=== PATIENT | female | born 1995 | race American Indian/Alaskan Native ===

== ENCOUNTER 2021-04-22 08:49 | Inpatient (IN) | payer MEDICAID ==
[2021-04-22] MEDS ORDERED: fentaNYL 100 MCG/2 ML INJ IV PRN (12:30)
[2021-04-22] MEDS ORDERED: miSOPROStol 200 MCG TAB PR PRN (12:30)
[2021-04-22] MEDS ORDERED: OXYTOCIN 10 UNIT/1 ML INJ IM PRN (12:30)
[2021-04-22] MEDS ORDERED: LIDOCAINE (2%) 20 MG/1 ML VIAL 20 ML MDV INFILTRATI ONE (12:30)
[2021-04-22] MEDS ORDERED: MINERAL OIL 30 ML ORAL LIQD PO PRN (12:30)
[2021-04-22] MEDS ORDERED: BUTORPHANOL 2 MG/1 ML INJ IV PRN (12:30)
[2021-04-22] MEDS ORDERED: METHYLERGONOVINE MALEATE 0.2 MG/ML VIAL IM PRN (12:30)
[2021-04-22] MEDS ORDERED: CARBOPROST TROMETHAMINE 250 MCG/1 ML INJ IM PRN (12:30)
[2021-04-22] MEDS ORDERED: LOPERAMIDE 2 MG CAP PO PRN (12:30)
[2021-04-22] MEDS ORDERED: ePHEDrine SULFATE 50 MG/1 ML INJ IV PRN (12:30)
[2021-04-22] MEDS ORDERED: NalbUPHINE 10 MG/1 ML INJ IV PRN (12:30)
[2021-04-22] MEDS ORDERED: TERBUTALINE 1 MG/1 ML INJ SUB-Q PRN (12:30)
[2021-04-22] MEDS ORDERED: ACETAMINOPHEN 325 MG TAB PO PRN (12:30)
[2021-04-22] MEDS ORDERED: OXYTOCIN DRIP 30 UNITS/500 ML BAG IV SCH ×2 (12:30)
[2021-04-22] MEDS: LACTATED RINGERS 1,000 ML IV SCH ×2 (12:44→21:49)
[2021-04-22 13:15] LABS: Hematocrit 28.7 % (30.3-42.9); Hemoglobin 9.4 gm/dl (10.1-14.3); Mean Corpuscular HGB Conc 33 % (30-34); Mean Corpuscular Volume 78 fl (79-97); Platelet Count 145 K/mm3 (140-440); Red Blood Count 3.68 M/mm3 (3.65-5.03); Red Cell Distribution Width 16.8 % (13.2-15.2)
--- NOTE | 2021-04-22 22:50 | History and Physical Report ---
History of Present Illness Date of examination: 04/22/21 Date of admission: 04/22/21 08:49 Chief complaint: I'm here for my induction History of present illness: Pt is a 25 year old who presents today for induction of labor at 40 weeks at the recommendation of [facility] due to brain anomaly. Past History Past Medical History: no pertinent history Past Surgical History: no surgical history Family/Genetic History: none Social history: no significant social history, single - Obstetrical History Expected Date of Delivery: 04/23/21 Actual Gestation: 40 Week(s) 0 Day(s) : 4 Para: 0 Medications and Allergies Allergies Allergy/AdvReac Type Severity Reaction Status Date / Time No Known Allergies Allergy Unverified 04/22/21 11:30 Home Medications Medication Instructions Recorded Confirmed Last Taken Type One Daily Tablet 1 tab PO DAILY 04/22/21 04/22/21 04/20/21 History Active Meds: Active Medications Acetaminophen (Acetaminophen 325 Mg Tab) 650 mg PO Q4H PRN PRN Reason: Pain, Mild (1-3) Butorphanol Tartrate (Butorphanol 2 Mg/1 Ml Inj) 2 mg IV Q2H PRN PRN Reason: Pain , Severe (7-10) Carboprost Tromethamine (Carboprost Tromethamine 250 Mcg/1 Ml Inj) 250 mcg IM ONCE PRN PRN Reason: Uterine Bleeding Ephedrine Sulfate (Ephedrine Sulfate 50 Mg/1 Ml Inj) 10 mg IV Q2M PRN PRN Reason: Hypotension Fentanyl (Fentanyl 100 Mcg/2 Ml Inj) 100 mcg IV Q2H PRN PRN Reason: Pain,Severe (7-10) LABOR PAIN Oxytocin/Sodium Chloride (Pitocin/Ns 30 Unit/500ml) 30 units in 500 mls @ 2 mls/hr IV TITR TAWANDA; Protocol Last Titration: 04/22/21 18:10 Dose: 6 mls/hr, 6 mls/hr Documented by: Lactated Ringer's (Lactated Ringers) 1,000 mls @ 125 mls/hr IV DIRECT TAWANDA Last Admin: 04/22/21 21:49 Dose: 125 mls/hr Documented by: Oxytocin/Sodium Chloride (Pitocin/Ns 30 Unit/500ml) 30 units in 500 mls @ 40 mls/hr IV TITR TAWANDA; Protocol Loperamide HCl (Loperamide 2 Mg Cap) 2 mg PO ONCE PRN PRN Reason: give with Hemabate Methylergonovine Maleate (Methylergonovine Maleate 0.2 Mg/Ml Vial) 0.2 mg IM ONCE PRN PRN Reason: Uterine Bleeding Mineral Oil (Mineral Oil 30 Ml Oral Liqd) 30 ml PO QHS PRN PRN Reason: Constipation Misoprostol (Misoprostol 200 Mcg Tab) 800 mcg MA ONCE PRN PRN Reason: Uterine Bleeding Nalbuphine HCl (Nalbuphine 10 Mg/1 Ml Inj) 10 mg IV Q2H PRN PRN Reason: Pain, Moderate (4-6) Oxytocin (Oxytocin 10 Unit/1 Ml Inj) 10 unit IM ONCE PRN PRN Reason: Uterine Bleeding Terbutaline Sulfate (Terbutaline 1 Mg/1 Ml Inj) 0.25 mg SUB-Q ONCE PRN PRN Reason: Hyperstimulation/Hypertonicity Review of Systems All systems: negative Constitutional: fatigue Genitourinary: pelvic pain - Vital Signs Vital signs: Vital Signs Pulse Pulse Ox 60 93 04/22/21 10:53 04/22/21 10:53 Temp Pulse Resp BP Pulse Ox 98.8 F 65 16 118/74 98 04/22/21 22:29 04/22/21 22:42 04/22/21 22:29 04/22/21 22:29 04/22/21 22:42 - Physical Exam Breasts: Positive: deferred Cardiovascular: Regular rate, Normal S1, Normal S2 Lungs: Positive: Clear to auscultation, Normal air movement Abdomen: Positive: normal appearance, soft, normal bowel sounds. Negative: distention, tenderness Genitourinary (Female): Positive: normal external genitalia, normal perenium Vulva: both: normal Vagina: Positive: normal moisture Cervix: Negative: lesion, discharge Uterus: Positive: normal size Adnexa: both: normal Anus/Rectum: Positive: normal perianal skin, heme negative. Negative: rectal mass, hemorrhoids Extremities: Deep Tendon Reflex Grade: Normal +2 - Obstetrical FHR: auscultation normal Cervical Dilatation: 2 Cervical Effacement Percentage: 50 station: -3 Uterine Contraction Pattern: Absent Uterine Tone Measurement Phase: Resting Uterine Contraction Intensity: Moderate Results Result Diagrams: 04/22/21 11:12 Abnormal lab results 04/22/21 Range/Units 11:12 Hgb 9.4 L (10.1-14.3) gm/dl Hct 28.7 L (30.3-42.9) % MCV 78 L (79-97) fl MCH 26 L (28-32) pg RDW 16.8 H (13.2-15.2) % All other labs normal. 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 Will begin pitocin today. AROM when able. Anticipate .
[2021-04-23] MEDS: LACTATED RINGERS 1,000 ML IV SCH ×3 (08:30→22:07)
--- NOTE | 2021-04-23 09:17 | Anesthesia Consultation ---
Anesthesia Consult and Med Hx Date of service: 04/23/21 - Airway Anesthetic Teeth Evaluation: Good ROM Head & Neck: Adequate Mallampati Class: Class II Intubation Access Assessment: Probably Good - Pulmonary Exam CTA: Yes - Cardiac Exam Cardiac Exam: RRR - Pre-Operative Health Status ASA Pre-Surgery Classification: ASA2 Proposed Anesthetic Plan: Epidural - Pulmonary Hx Smoking: No Hx Asthma: No Hx Respiratory Symptoms: No SOB: No COPD: No Home Oxygen Therapy: No Hx Pneumonia: No Hx Sleep Apnea: No - Cardiovascular System Hx Hypertension: No Hx Coronary Artery Disease: No Hx Heart Attack/AMI: No Hx Angina: No Hx Percutaneous Transluminal Coronary Angioplasty (PTCA): No Hx Cardia Arrhythmia: No Hx Pacemaker: No Hx Internal Defibrillator: No Hx Valvular Heart Disease: No Hx Heart Murmur: No Hx Peripheral Vascular Disease: No - Central Nervous System Hx Seizures: Yes (seizure as a child) CVA: No Hx Back Pain: Yes Hx Psychiatric Problems: No - Gastrointestinal Hx Ulcer: No Hx Gastroesophageal Reflux Disease: No - Endocrine Hx Renal Disease: No Hx End Stage Renal Disease: No Hx Cirrhosis: No Hx Liver Disease: No Hx Insulin Dependent Diabetes: No Hx Non-Insulin Dependent Diabetes: No Hx Thyroid Disease: No Hx Hypothyroidism: No Hx Hyperthyroidism: No - Hematic Hx Anemia: Yes (Chronic anemia) Hx Sickle Cell Disease: No - Other Systems Hx Alcohol Use: No Hx Substance Use: No Hx Cancer: No Hx Obesity: No
[2021-04-23] MEDS ORDERED: NALOXONE 2 MG/2 ML INJ IV PRN (09:30)
[2021-04-23] MEDS ORDERED: ePHEDrine SULFATE 50 MG/1 ML INJ IV PRN (09:30)
[2021-04-23] MEDS: fentaNYL-BUPIV 2 MCG/ML-0.125% 200 MCG/100 ML BAG EPIDURAL SCH ×2 (09:57→18:15)
--- NOTE | 2021-04-23 10:14 | Progress Note ---
Labor Epidural - Labor Epidural Start Time: 09:38 Stop Time: 10:48 Performed by:: NIVIA JUNE Procedure: Patient is requesting a laboring epidural for laboring pain. Patient IDed, H&P reviewed, all questions and concerns were answered, and consent was signed. Timeout was performed at bedside. Patient in sitting position. Sterile prep and drape was performed. [3] ml of 1% lidocaine skin wheal at L[3]- L [4]. 18- gauge Danna epidural needle was advanced to loss of resistance with saline technique 6cm. Negative CSF negative blood. Epidural catheter advanced to [10] centimeters. [NEGATIVE] Aspiration [NEGATIVE] test dose. Sterile dressing applied. Patient tolerated procedure.
[2021-04-24] MEDS: LACTATED RINGERS 1,000 ML IV SCH ×2 (01:15→03:54)
[2021-04-24] MEDS: fentaNYL-BUPIV 2 MCG/ML-0.125% 200 MCG/100 ML BAG EPIDURAL SCH (02:09)
[2021-04-24] MEDS ORDERED: BICITRA ORAL LIQD 30ML PO ONE (04:22)
[2021-04-24] MEDS ORDERED: LIDOCAINE MPF (2%) 20 MG/1 ML VIAL 5 ML ONE ×2 (04:37→04:38)
[2021-04-24] MEDS ORDERED: FAMOTIDINE 20 MG/2 ML INJ IV ONE (05:00)
[2021-04-24] MEDS ORDERED: ceFAZolin/STERILE WATER 2 GM/20 ML SYRINGE IV NR (05:00)
[2021-04-24] MEDS ORDERED: METOCLOPRAMIDE 10 MG/2 ML INJ IV NR (05:00)
[2021-04-24] MEDS ORDERED: NALOXONE 0.4 MG/1 ML INJ IV PRN ×2 (05:10→09:30)
[2021-04-24] MEDS ORDERED: ONDANSETRON 4 MG/2 ML INJ IV PRN (05:10)
[2021-04-24] MEDS ORDERED: HYDROmorphone 1 MG/1 ML INJ IV PRN ×2 (05:10)
--- NOTE | 2021-04-24 05:10 | Anesthesia Day of Surgery ---
Anesthesia Day of Surgery - Day of Surgery Patient Examined: Yes Patient H&P Reviewed: Yes Patient is NPO: Yes Beta Blockers: No Cardiac Clearance: No Pulmonary Clearance: No Erickson's Test: Negative
[2021-04-24] MEDS ORDERED: ceFAZolin/STERILE WATER 2 GM/20 ML SYRINGE IV ONE (06:00)
[2021-04-24] MEDS ORDERED: WATER FOR IRRIG STERILE 1,500 ML BOTTLE IR ONE (06:00)
[2021-04-24] MEDS ORDERED: SODIUM CHLORIDE 0.9% IRR 1,500 ML BOTTLE IR ONE (06:00)
[2021-04-24] MEDS ORDERED: MIDAZOLAM 2 MG/2 ML INJ ONE ×2 (06:08)
[2021-04-24] MEDS ORDERED: OXYTOCIN 10 UNIT/1 ML INJ ONE (06:16)
[2021-04-24] MEDS ORDERED: ONDANSETRON 4 MG/2 ML INJ ONE ×2 (06:37)
[2021-04-24] MEDS ORDERED: KETOROLAC 30 MG/1 ML INJ ONE (06:38)
--- NOTE | 2021-04-24 07:02 | Procedure Note ---
OB Delivery Note - Delivery Date of Delivery: 04/24/21 Surgeon: PRASANNA GONSALEZ Estimated blood loss: other (800) - Section Preop diagnosis: arrest of dilation, nonreassuring FHR tracing Postop diagnosis: same section procedure: primary low transverse Disposition: PACU Complications: none Narrative: see op report - Infant A at 1 minute: 1 at 5 minutes: 3 Infant Gender: Female (7 pounds 4 ounces)
--- NOTE | 2021-04-24 07:11 | Operative Report ---
Operative Report Operative Report: Preoperative diagnosis: Intrauterine at 40 weeks 2. Failed induction of labor 3. Nonreassuring heart sounds Postoperative diagnosis: Same Procedure: Primary low transverse section Surgeon: Dr. Francisca Delvalle EBL: 800 cc Urine output: 100 mL IV fluids: 750 cc mL Findings: Viable female in the occiput posterior position. Weight 7 lbs. 4 oz. 3712 g Apgars 1 and 3, 9. Otherwise normal pelvic anatomy Specimens: Placenta Complications: None Indications: Patient is 25-year-old 4 P0 who presented for induction secondary to absent CSP in the brain. Patient was induced but progressed only to 8 cm and remained there for several hours. In addition the infant began having intermittent repetitive late decelerations. Decision was then made to proceed with section. Procedure: The patient was admitted to the OR with IV running and in place. She was properly identified as herself. Epidural anesthesia had been placed prior to surgery during labor as well as a anand catheter. She was placed in the dorsal supine position with a leftward tilt. She was then prepped and draped in the normal sterile fashion. An Allis test was used to confirm adequate anesthesia. Once confirmed, the incision was made with the scalpel and carried to the underlying fascia using the scalpel and the Bovie. The fascia was incised in the midline and incision was extended bilaterally using the curved Burciaga scissors. The fascia was then dissected from the underlying rectus muscles in a series of sharp and blunt dissection using the Burciaga scissors. Muscles were in the in the midline sharply using Metzenbaum scissors and the peritoneum was entered into bluntly using the surgeon's fingers. A bladder blade was then placed into the incision to protect the bladder. Following this the bladder flap was created. Hysterotomy incision was then made in the scalpel. Upon uterine entry, the amniotic sac was ruptured for clear fluid. The was then delivered without difficulty. Her mouth and nose were suctioned on the field. The cord was clamped and cut and he was handed to the waiting NICU personnel. The uterus was then exteriorized and cleared of all clots and debris. The hysterotomy incision was then closed in a running locked fashion using 0 Vicryl. The abdomen was then copiously irrigated with warm normal saline. Following this the uterus was replaced into the abdominal cavity. At this point the muscles were reapproximated in the midline using individual sutures of 0 Vicryl. Following this the fascia was closed in a running fashion using 0 Vicryl. Tissue was then copiously irrigated. The Skin was closed in a running fashion using 3-0 Monocryl. The sponge lap needle and instrument counts were correct 2. The patient tolerated the procedure well. She was taken to recovery in stable condition.
[2021-04-24] MEDS ORDERED: MORPHINE 2 MG/1 ML INJ IV PRN (08:59)
[2021-04-24] MEDS ORDERED: MAGNESIUM HYDROXIDE (MOM) ORAL LIQD UDC PO PRN (09:30)
[2021-04-24] MEDS ORDERED: WITCH HAZEL/ GLYCERIN PAD TP PRN (09:30)
[2021-04-24] MEDS ORDERED: D5W/LACTATED RINGERS 1,000 ML IV SCH (09:30)
[2021-04-24] MEDS ORDERED: OXYTOCIN DRIP 30 UNITS/500 ML BAG IV SCH (09:30)
[2021-04-24] MEDS ORDERED: SIMETHICONE 80 MG CHEW TAB PO PRN (09:30)
[2021-04-24] MEDS ORDERED: LANOLIN/ZINC/DIMETHICONE (LANSINOH) 7 GM TP PRN (09:30)
[2021-04-24] MEDS: PRENATAL VIT27-FE FUMARATE-FOLIC ACID VIT TAB PO SCH (10:51)
[2021-04-24] MEDS: IBUPROFEN 800 MG TAB PO PRN ×2 (12:51→18:08)
[2021-04-24 18:59] LABS: Hematocrit 23.2 % (30.3-42.9); Hemoglobin 7.5 gm/dl (10.1-14.3)
[2021-04-24] MEDS: oxyCODONE /ACETAMINOPHEN 5-325MG TAB PO PRN (21:43)
[2021-04-25] MEDS: oxyCODONE /ACETAMINOPHEN 5-325MG TAB PO PRN ×3 (05:14→22:42)
[2021-04-25] MEDS: PRENATAL VIT27-FE FUMARATE-FOLIC ACID VIT TAB PO SCH (10:07)
[2021-04-25] MEDS: IBUPROFEN 800 MG TAB PO PRN ×2 (10:07→17:28)
--- NOTE | 2021-04-25 11:44 | Progress Note ---
Assessment and Plan - Patient Problems (1) delivery delivered Current Visit: Yes Status: Acute Plan to address problem: Routine postoperative care Order maternity belt Subjective - Subjective Date of service: 04/25/21 Interval history: Patient reports having some pelvic pressure. She is ambulating voiding without difficulty. Patient reports: appetite normal, voiding normally, pain well controlled [place]: doing well Objective - Vital Signs Latest vital signs: Vital Signs Temp Pulse Resp BP Pulse Ox Pulse Ox 04/25/21 08:15 97.9 F 71 16 96/55 99 04/25/21 08:08 98 04/25/21 05:14 18 98 04/25/21 00:45 97.9 F 84 20 100/66 98 04/24/21 22:40 99 04/24/21 21:45 99 04/24/21 21:43 18 04/24/21 19:48 97.9 F 92 H 20 96/53 98 04/24/21 19:30 98 04/24/21 16:06 97.7 F 91 H 18 100/56 99 Intake and Output 04/24/21 04/25/21 04/25/21 22:59 06:59 14:59 Intake Total 100 200 480 Output Total 800 200 Balance -700 0 480 Intake: Oral 100 200 240 Intake, Free Water 240 Output: Urine 800 200 Indwelling Catheter 600 Void 200 200 Other: Total, Intake Amount 100 200 240 Total, Output Amount 200 200 - Exam Abdomen: Present: normal appearance Incision: Present: dressed - Labs Labs: Abnormal lab results 04/24/21 Range/Units 18:04 Hgb 7.5 L (10.1-14.3) gm/dl Hct 23.2 L (30.3-42.9) %
[2021-04-26] MEDS: PRENATAL VIT27-FE FUMARATE-FOLIC ACID VIT TAB PO SCH (10:11)
--- NOTE | 2021-04-26 11:36 | Progress Note ---
Assessment and Plan - Patient Problems (1) delivery delivered Current Visit: Yes Status: Acute Plan to address problem: Patient doing well Discharge home Subjective - Subjective Date of service: 04/26/21 Interval history: Patient is currently without complaints. Pain is better controlled. She is tolerating regular diet Patient reports: appetite normal, voiding normally, pain well controlled : doing well Objective - Vital Signs Latest vital signs: Vital Signs Temp Pulse Resp BP BP Pulse Ox Pulse Ox 04/26/21 08:30 97 04/26/21 08:02 97.8 F 75 18 104/68 99 04/26/21 01:14 98.2 F 81 20 99/55 99 04/25/21 22:42 20 04/25/21 19:33 97 04/25/21 15:55 98.2 F 76 18 104/61 04/25/21 11:52 98.1 F 88 16 104/69 100 Intake and Output 04/25/21 04/26/21 04/26/21 22:59 06:59 14:59 Intake Total 600 240 Output Total 600 Balance 0 240 Intake: Oral 240 240 Intake, Free Water 360 Output: Urine 600 Void 600 Other: Total, Intake Amount 240 240 Total, Output Amount 600 Voiding Method Toilet # Voids Void 1 2 - Exam Abdomen: Present: normal appearance, soft
--- NOTE | 2021-04-26 11:37 | Discharge Summary ---
Providers - Providers Date of Admission: 04/22/21 08:49 Date of discharge: 04/26/21 Attending physician: PRASANNA GONSALEZ Primary care physician: PRASANNA GONSALEZ Hospitalization Reason for admission: induction of labor Delivery: Procedure: section, primary low transverse Discharge diagnosis: IUP at term delivered Hospital course: Patient was admitted for induction of labor and her intrapartum course is complicated by nonreassuring heart rate tracing. The patient underwent a primary delivery. Her postoperative course was uneventful. Condition at discharge: Good Disposition: DC-01 TO HOME OR SELFCARE - Discharge Diagnoses (1) delivery delivered Status: Acute Plan - Discharge Medications Prescriptions: Ibuprofen [Motrin] 800 mg PO Q8HR PRN #60 tablet PRN Reason: Pain , Severe (7-10) oxyCODONE /ACETAMINOPHEN [Percocet 5/325] 1 tab PO Q6HR PRN #30 tablet PRN Reason: Pain - Provider Discharge Summary Activity: no sex for 6 weeks, no heavy lifting 4 weeks, no strenuous exercise Diet: routine Instructions: routine Additional instructions: [] Smoking cessation referral if applicable(refer to patient education folder for contact #) [] Refer to [facility] Booklet Call your doctor immediately for: * Fever > 100.5 * Heavy vaginal bleeding ( >1 pad per hour) * Severe persistent headache * Shortness of breath * Reddened, hot, painful area to leg or breast * Drainage or odor from incision. * Keep incision clean and dry at all times and follow doctor's instructions regarding bathing/showering Schedule visit in 2 weeks - Follow up plan
[2021-04-26] MEDS: IBUPROFEN 800 MG TAB PO PRN (11:58)
[2021-04-26 13:31] VITALS: BP 116/78
== END 2021-04-26 15:10 | disposition home or self-care (01) | DRG 765 ==
LOC: LD 08:49 → OB 04-24 08:47
PROVIDERS: ADMIT Obstetrics & Gynecology; ATTEND Obstetrics & Gynecology
PROC: 10D00Z1 Extraction of Products of Conception, Low, Open Approach (ICD-10-PCS; principal; 2021-04-24)
PROC: 3E0R3BZ Introduction of Anesthetic Agent into Spinal Canal, Percutaneous Approach (ICD-10-PCS; 2021-04-24)
PROC: 00HU33Z Insertion of Infusion Device into Spinal Canal, Percutaneous Approach (ICD-10-PCS; 2021-04-24)
DX: O76 Abnormality in fetal heart rate and rhythm complicating labor and delivery (principal); D62 Acute posthemorrhagic anemia; Z37.0 Single live birth; O99.02 Anemia complicating childbirth; Z3A.40 40 weeks gestation of pregnancy; Z20.822 Contact with and (suspected) exposure to COVID-19
CPT/HCPCS: 36415; 85014; 85018; 85027; 86592; 86850; 86900; 86901; 88307; G0378; J0595; J0690; J1885; J2250; J2405; J2590; J2765; J7120; J7121; U0003